=== PATIENT | female | born 1980 | race Caucasian/White ===

== ENCOUNTER 2016-06-25 12:57 | Emergency (ER) | payer OTHER ==
[~2016-06-25] VITALS: Ht 157.5 cm; Wt 136.1 kg
[~2016-06-25 12:57] MED LIST: ALEVE220 MG PO; APAP500 MG PO; BACTRIM DS 8001 TAB PO; CEPHALEXIN500 MG PO; GOOD SENSE IBU200 MG PO; GUAIFENESIN-COD10 ML PO; HYDROCODONE/ACE1 TA1 PO; JANUMET 1000 MG1 TAB PO; KEFLEX500 MG PO; LEXAPRO10 M1 PO; LISINOPRIL20 MG PO; LISINOPRIL30 M1 PO; LOVASTATIN10 M1 PO; LOVASTATIN10 MG PO; METFORMIN HCL500 MG PO; PERCOCET 325 MG1 TA2 PO; PREDNISONE20 M1 PO; VENTOLIN HFA18 GM INH; VICTOZA 3-0.6 MG/0.1 SC; VITAMIN D50000 IU PO; ZITHROMAX250 M2 PO
--- NOTE | 2016-06-25 13:45 | ED UPPER/LOWER EXTREMITY COMPL ---
History of Present Illness General Chief Complaint: Lower Extremity Injury Stated Complaint: RIGHT KNEE PAIN Source: patient Exam Limitations: no limitations Vital Signs & Intake/Output Vital Signs & Intake/Output Vital Signs Date Time Temp Pulse Resp B/P Pulse O2 O2 Flow FiO2 Ox Delivery Rate 06/25 1534 98.6 89 20 145/73 96 Room Air 06/25 1323 98.5 103 20 149/81 95 Room Air Allergies Coded Allergies: NO KNOWN ALLERGIES (11/15/14) Reconcile Medications Albuterol Sulfate (Ventolin Hfa) 18 GM HFA.AER.AD 2 PUF INH Q4-6 PRN PRN wheezing Atorvastatin Calcium 20 MG TABLET 1 TAB PO DAILY HPL (Reported) Budesonide/Formoterol Fumarate (Symbicort 160-4.5 Mcg Inhaler) 160 MCG-4.5 MCG/ ACTUATION HFA.AER.AD 2 PUF INH BID ASTHMA (Reported) Bupropion HCl (Bupropion HCl Sr) 150 MG TABLET.ER 1 TAB PO BID MENTAL HEALTH (Reported) Insulin Detemir (Levemir Flextouch) (Unknown Strength) INSULN.PEN (Unknown Dose) AD DM (Reported) Ketorolac Tromethamine 10 MG TABLET 1 TAB PO TID PRN PAIN RECEIVED IM IN ER Liraglutide (Victoza 3-Zeus) 0.6 MG/0.1 ML PEN.INJCTR 1.6 MG SC DAILY DIABETES (Reported) Losartan/Hydrochlorothiazide (Losartan-Hctz 100-12.5 MG Tab) 100 MG-12.5 MG TABLET 1 TAB PO DAILY HTN (Reported) Metformin HCl 1,000 MG TABLET 1 TAB PO BID DM (Reported) Triage Note: RECEIVED 35 YO FEMALE C/O RIGHT KNEE PAIN, STARTED YESTERDAY. PT WAS AT [employer] AND HEARD A POP WHILE JUMPING, PAIN INCREASES WITH WEIGHT BEARING Triage Nurses Notes Reviewed? yes Onset: Abrupt Duration: constant Timing: recent history Severity: severe Severity Numbers: 7 : No Patient currently breastfeeds: No HPI: Patient is a 35-year-old female who presents emergency room stating that yesterday while jumping on a trampoline she landed awkwardly where she twisted her right knee and since patient has been having pain to the lateral aspect of her right knee. Patient states that she walks with a limp and has been using her 's cane patient has been taking ibuprofen and Tylenol with minimal relief of symptoms. Denies any significant knee injuries or surgeries. Denies any hip pain or ankle pain. (RASHAD BEARD) Past History Travel History Traveled to [place] past 21 day No Medical History Any Pertinent Medical History? see below for history Neurological: NONE EENT: NONE Cardiovascular: hypertension, hyperlipidemia Respiratory: NONE Gastrointestinal: RECTAL BLEED Hepatic: NONE Renal: NONE Musculoskeletal: NONE Psychiatric: NONE Endocrine: diabetes Blood Disorders: NONE Cancer(s): NONE GOLF COURSE RANGER/Reproductive: NONE Surgical History Surgical History: C-SECT Psychosocial History What is your primary language [place] Tobacco Use: Never used Family History Hx Contributory? No (RASHAD BEARD) Review of Systems Review of Systems Constitutional: Reports: no symptoms. EENTM: Reports: no symptoms. Respiratory: Reports: no symptoms. Cardiovascular: Reports: no symptoms. Gastrointestinal/Abdominal: Reports: no symptoms. Genitourinary: Reports: no symptoms. Musculoskeletal: Reports: see HPI, joint pain. Skin: Reports: no symptoms. Neurological/Psychological: Reports: no symptoms. Hematologic/Endocrine: Reports: no symptoms. Immunological: Reports: no symptoms. All Other Systems: Reviewed and Negative (RASHAD BEARD) Physical Exam Physical Exam General Appearance: no apparent distress, obese Neurologic/Tendon: normal sensation, normal motor functions, normal tendon functions, responds to pain, no evidence tendon injury Skin: intact, normal color, warm/dry Comments: HEENT: Atraumatic, extraocular motion intact Neck: Supple, no lymphadenopathy Back: Nontender Respiratory: No respiratory distress Extremities: Right hip nontender full active range of motion Right knee normal inspection decreased active range of motion noted with 60 of flexion Lateral joint line point tenderness Negative anterior drawer test negative posterior drawer test Varus stress test elicited pain however no laxity was noted, negative valgus stress test Right ankle nontender normal inspection Right lower extremity dermatomes intact Neuro: Alert and oriented x3 Psych: Mood affect normal, normal memory normal judgment. (RASHAD BEARD) Progress Differential Diagnosis: arterial insufficiency, compartment syndrome, contusion, dislocation, DVT, fracture, gout, septic arthritis, sprain, tendon injury Plan of Care: Orders Procedure Date/time Status Durable Medical Equipment 06/25 1525 Active URINE 06/25 1326 Complete Laboratory Tests 06/25/16 1336: Urine Test NEGATIVE No osseous injury noted on x-rays Due to history of present illness and exam findings or suspicion of lateral collateral knee sprain However no laxity was noted Patient was offered crutches for weightbearing as tolerated status and was strongly advised to follow-up with orthopedic doctor. Naveed wrap was applied to right knee pre-and post-neurovascular was intact (RASHAD BEARD) Diagnostic Imaging: Viewed by Me: Radiology Read. Radiology Impression: no fracture Comments: PATIENT: MEHDI OLIVEROS PRESENT AGE: 35 PATIENT ACCOUNT NO: [id number] : 82 LOCATION: [facility] ORDERING PHYSICIAN: RASHAD GREEN SERVICE DATE: 06/25/16 EXAM TYPE: RAD - XRY-KNEE COMPLETE RIGHT EXAMINATION: XR KNEE, RIGHT CLINICAL INFORMATION: Right knee pain. Status post injury yesterday at a [employer] park. COMPARISON: None. TECHNIQUE: AP, lateral, oblique and tunnel views of the right knee. FINDINGS: Bones and soft tissues appear unremarkable. No acute fracture or dislocation of the right knee is visualized. Probable small knee joint effusion. Alignment is anatomic. Joint spaces are well maintained. No abnormal soft tissue calcification. IMPRESSION: No visible fracture or dislocation of the right knee. Probable small suprapatellar knee joint effusion. (RASHAD BEARD) Departure Departure Disposition: HOME OR SELF CARE Condition: Stable Clinical Impression Primary Impression: Right knee pain Secondary Impressions: Lateral collateral ligament sprain of knee Referrals: JAQUELIN OBRIEN,GABINO MARTINEZ (PCP/Family) Additional Instructions: As discussed begin icing the area directly 20 minutes every 2 hours Begin the prescription of ketorolac for pain and inflammation begin using the crutches until YOU can walk without pain Begin using the Naveed wrap for swelling If symptoms worsen return to emergency room Prescriptions are waiting at [facility] If no better in one week follow-up with orthopedic Dr. Perea Departure Forms: Customer Survey General Discharge Information Prescriptions: Current Visit Scripts Ketorolac Tromethamine 1 TAB PO TID PRN PAIN #15 TAB RECEIVED IM IN ER (RASHAD BEARD) PA/MARRIAGE COUNSELOR MINISTER Co-Sign Statement Statement: ED Attending supervision documentation- [] I saw and evaluated the patient. I have also reviewed all the pertinent lab results and diagnostic results. I agree with the findings and the plan of care as documented in the PA's/MARRIAGE COUNSELOR MINISTER's documentation. [X] I have reviewed the ED Record and agree with the PA's/MARRIAGE COUNSELOR MINISTER's documentation. [] Additions or exceptions (if any) to the PAs/MARRIAGE COUNSELOR MINISTER's note and plan are summarized below: [] (MILLIE OBRIEN,OLIVA)
[2016-06-25] MEDS ORDERED: BUPROPION HCL150 M4 PO (14:05)
[2016-06-25] MEDS ORDERED: SYMBICORT 16010.2 GM INH (14:05)
[2016-06-25] MEDS ORDERED: LEVEMIR FL100 UNIT/1 (14:05)
[2016-06-25] MEDS ORDERED: ATORVASTATIN CA20 M1 PO (14:05)
[2016-06-25] MEDS ORDERED: LOSARTAN-HCTZ1 EACH PO (14:05)
[2016-06-25] MEDS ORDERED: METFORMIN HCL1000 M1 PO (14:06)
--- NOTE | 2016-06-25 15:17 | RADIOLOGY REPORT ---
EXAMINATION: XR KNEE, RIGHT CLINICAL INFORMATION: Right knee pain. Status post [place] [employer] [place]. COMPARISON: None. TECHNIQUE: AP, lateral, oblique and tunnel views of the right knee. FINDINGS: Bones and soft tissues appear unremarkable. No acute fracture or dislocation of the right knee is visualized. Probable small knee joint effusion. Alignment is anatomic. Joint spaces are well maintained. No abnormal soft tissue calcification. IMPRESSION: No visible fracture or dislocation of the right knee. Probable small suprapatellar knee joint effusion.
[2016-06-25] MEDS ORDERED: KETOROLAC TROME10 M1 PO (15:27)
[2016-06-25 15:34] VITALS: BP 145/73
== END 2016-06-25 15:35 ==
LOC: ERH 12:57
DX: S83.421A Sprain of lateral collateral ligament of right knee, initial encounter (principal); M25.561 Pain in right knee; X50.9XXA Other and unspecified overexertion or strenuous movements or postures, initial encounter; Y93.44 Activity, trampolining; Y92.9 Unspecified place or not applicable
CPT/HCPCS: 73562-RT; 81025; 96372; J1885